=== PATIENT | male | born 1985 | race Caucasian/White ===

== ENCOUNTER 2019-02-17 09:26 | Emergency (ER) | payer BC ==
--- NOTE | 2019-02-17 10:11 | EDM.PDOC ---
ED HPI GENERAL MEDICAL PROBLEM - General Chief Complaint: Gastrointestinal Problem Stated Complaint: BLOODY STOOLS, FLANK PAIN R SIDE Time Seen by Provider: 02/17/19 09:48 Source of Information: Reports: Patient, RN Notes Reviewed - History of Present Illness INITIAL COMMENTS - FREE TEXT/NARRATIVE: 33-year-old male comes in with concern about a bruise to the right low flank area. He does not recall any injury to the area. He just noticed that this morning after showering. There is some localized tenderness but he is not having severe LV or flank discomfort at this time. States he has lost 15-20 pounds in the past 2 weeks and that is a concern to him. He is under a lot of stress with his work. He states that he has had occasional very small amounts of blood at times with bowel movements, had a few clots a day or 2 ago but nothing this morning. No abdominal pain at this time. He has not been vomiting. 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 - Related Data Allergies Allergy/AdvReac Type Severity Reaction Status Date / Time No Known Allergies Allergy Verified 08/04/18 12:20 Home Meds: Home Meds Omeprazole 20 mg PO DAILY #30 cap.cr 02/17/19 [Rx] Past Medical History - Past Health History Medical/Surgical History: Denies Medical/Surgical History Psychiatric History: Reports: Addiction Other Psychiatric History: Patient reports hes had an overdose in the past on oxycodone and xanax in which he required CPR. Social & Family History - Family History Family Medical History: Noncontributory - Tobacco Use Smoking Status *Q: Current Every Day Smoker Years of Tobacco use: 15 Packs/Tins Daily: 0.5 - Caffeine Use Caffeine Use: Reports: Coffee, Energy Drinks, Soda, Tea - Alcohol Use Days Per Week of Alcohol Use: 7 Number of Drinks Per Day: 6 Total Drinks Per Week: 42 - Recreational Drug Use Recreational Drug Use: Yes Recreational Drug Type: Reports: Marijuana/Hashish ED ROS GENERAL - Review of Systems Review Of Systems: See Below Constitutional: Reports: Weight Loss. Denies: Fever, Chills HEENT: Reports: No Symptoms Respiratory: Denies: Shortness of Breath Cardiovascular: Denies: Chest Pain GI/Abdominal: Denies: Abdominal Pain, Diarrhea, Nausea, Vomiting Musculoskeletal: Denies: Back Pain, Joint Pain Skin: Reports: Bruising (There is an area of bruising right low flank) Neurological: Denies: Numbness, Tingling, Trouble Speaking, Difficulty Walking, Weakness ED EXAM, GI/ABD - Physical Exam Exam: See Below General Appearance: Alert, Anxious (Mild) Eyes: Bilateral: Normal Appearance Throat/Mouth: Normal Inspection Head: Atraumatic Neck: Supple, Full Range of Motion Respiratory/Chest: No Respiratory Distress, Lungs Clear, Normal Breath Sounds Cardiovascular: Regular Rate, Rhythm GI/Abdominal Exam: Soft, Non-Tender, No Mass. No: Guarding Back Exam: Other (There is no area of bruising just above the pelvic rim on the right with mild localized tenderness) Neurological: Alert, Oriented, No Motor/Sensory Deficits Skin Exam: Warm, Dry, Normal Color Course - Vital Signs Last Recorded V/S: Last Vital Signs Temp 97.4 F 02/17/19 09:31 Pulse 80 02/17/19 09:31 Resp 18 02/17/19 09:31 BP 139/71 02/17/19 09:31 Pulse Ox 99 02/17/19 09:31 - Orders/Labs/Meds Labs: Laboratory Tests 02/17/19 02/17/19 Range/Units 09:45 09:45 WBC 5.45 (4.23-9.07) K/mm3 RBC 4.57 L (4.63-6.08) M/mm3 Hgb 14.3 (13.7-17.5) gm/L Hct 40.4 (40.1-51.0) % MCV 88.4 (79.0-92.2) fl MCH 31.3 (25.7-32.2) pg MCHC 35.4 (32.2-35.5) g/dl RDW Std Deviation 41.2 (35.1-43.9) fL Plt Count 269 (163-337) K/mm3 MPV 9.9 (9.4-12.3) fl Neut % (Auto) 59.4 (34.0-67.9) % Lymph % (Auto) 18.7 L (21.8-53.1) % [place] % (Auto) 15.4 H (5.3-12.2) % Eos % (Auto) 6.1 (0.8-7.0) Baso % (Auto) 0.4 (0.1-1.2) % Neut # (Auto) 3.24 (1.78-5.38) K/mm3 Lymph # (Auto) 1.02 L (1.32-3.57) K/mm3 [place] # (Auto) 0.84 H (0.30-0.82) K/mm3 Eos # (Auto) 0.33 (0.04-0.54) K/mm3 Baso # (Auto) 0.02 (0.01-0.08) K/mm3 Manual Slide Review Normal smear Sodium 135 L (136-145) mEq/L Potassium 3.2 L (3.5-5.1) mEq/L Chloride 101 (98-107) mEq/L Carbon Dioxide 25 (21-32) mEq/L Anion Gap 12.2 (5-15) BUN 10 (7-18) mg/dL Creatinine 0.9 (0.7-1.3) mg/dL Est Cr Clr Drug Dosing 129.47 mL/min Estimated GFR (MDRD) > 60 (>60) mL/min BUN/Creatinine Ratio 11.1 L (14-18) Glucose 165 H (74-106) mg/dL Calcium 8.5 (8.5-10.1) mg/dL Total Bilirubin 0.7 (0.2-1.0) mg/dL AST 41 H (15-37) U/L ALT 48 (16-63) U/L Alkaline Phosphatase 70 (46-116) U/L Total Protein 7.2 (6.4-8.2) g/dl Albumin 3.9 (3.4-5.0) g/dl Globulin 3.3 gm/dL Albumin/Globulin Ratio 1.2 (1-2) - Re-Assessments/Exams Free Text/Narrative Re-Assessment/Exam: 02/17/19 11:00 Blood count is good. However blood sugar is high at 165. He is only had coffee this morning with a teaspoon of sugar in the coffee. Sounds like he does get quite a few cards with his diet. He needs a fasting blood sugar checked and if abnormal glucose tolerance test. Discharge instructions as documented. Departure - Departure Time of Disposition: 10:53 Disposition: Home, Self-Care 01 Condition: Fair Clinical Impression: Hyperglycemia Gastritis Qualifiers: Gastritis type: unspecified gastritis Chronicity: acute Gastritis bleeding: presence of bleeding unspecified Qualified Code(s): K29.00 - Acute gastritis without bleeding Contusion, flank Qualifiers: Encounter type: initial encounter Qualified Code(s): S30.1XXA - Contusion of abdominal wall, initial encounter - Discharge Information Prescriptions: Omeprazole 20 mg PO DAILY #30 cap.cr Referrals: PCP,None [Primary Care Provider] - Forms: ED Department Discharge Additional Instructions: Your blood sugar was high this morning at 165. That will need to be followed closely. Try avoid sugar, carbohydrate and flour foods as much as you can. Call or [facility] clinic for a morning appointment early next week, [phone]. Ask to have a fasting blood sugar drawn at time of your appointment. Begin Prilosec 40 mg daily to help reduce the acid of your stomach. Avoid excess alcohol as that will be hard in your stomach. Avoid spicy foods for now. Return to ED as needed if symptoms worsening in any way.
== END 2019-02-17 11:05 | disposition home or self-care (01) ==
LOC: JD.ED 09:26
DX: K29.00 Acute gastritis without bleeding (principal); S30.1XXA Contusion of abdominal wall, initial encounter; R73.9 Hyperglycemia, unspecified; Z79.899 Other long term (current) drug therapy; X58.XXXA Exposure to other specified factors, initial encounter
CPT/HCPCS: 36415; 80053; 85025; 99283; 99284